=== PATIENT | male | born 2000 | race Caucasian/White ===

== ENCOUNTER 2022-01-02 13:39 | Outpatient (CLI) | payer OTHER, BC, SELFPAY ==
--- NOTE | 2022-01-02 13:45 | CRLHL7_ITS ---
For Patients: As a result of the Century Cures Act, medical imaging exams and procedure reports are released immediately into your electronic medical record. You may view this report before your referring provider. If you have questions, please contact your health care provider. Indication: Seizures. Syncope. Collapse. Technique: Noncontrast sagittal T1, axial FLAIR, T2, diffusion weighted sequences are provided. Additional high-resolution coronal FLAIR, T2 and T1 weighted sequences are provided. No comparisons. Findings: The ventricles, sulci and gyri are normal size, shape and contour for age. The midline structures are centrally located with no evidence of shift. There are no suspicious intra or extra-axial fluid collections. No region of restricted diffusion. Expected flow voids in the cavernous carotids and basilar artery. The hippocampal formations grossly bilaterally appear symmetric with no evidence of abnormal signal within their substance. Leung-white differentiation appears well maintained. Impression: Unremarkable noncontrast MRI of the head. Dictated by Robert Kendrick MD @ 01/02/2022 3:43:55 PM (Electronically Signed)
== END 2022-01-02 13:40 | disposition home or self-care (01) ==
PROVIDERS: PCP Nurse Practitioner Family; Visit Provider Nurse Practitioner Family
DX: R55 Syncope and collapse (principal); R56.9 Unspecified convulsions
CPT/HCPCS: 70551

== ENCOUNTER 2024-04-11 13:21 | Outpatient (CLI) | payer OTHER, BC, SELFPAY | END 2024-04-11 13:22 | disposition home or self-care (01) | LOC: NFLDREF 13:22 | PROVIDERS: PCP Family Medicine; Visit Provider Family Medicine | DX: R42 Dizziness and giddiness (principal) | CPT/HCPCS: 80048 ==